=== PATIENT | female | born 1995 | race Two or more races ===

== ENCOUNTER 2019-03-04 11:45 | Emergency (ER) | payer SELFPAY ==
[~2019-03-04] VITALS: Ht 157.5 cm; Wt 53.5 kg
[~2019-03-04 11:45] MED LIST: CEPH-443 PO
[2019-03-04 11:49] VITALS: BP 131/76; PULSE 84; RESP 16; Ht 157.5 cm; Wt 53.5 kg
--- NOTE | 2019-03-04 13:55 | ERD ---
ER Documentation Chief Complaint Chief Complaint rt lower quadrant pain x 3 days , 18 weeks preg , frequency of urination HPI Very pleasant 23-year-old female at approximately 18 weeks gestation presents to the ED complaining of right lower pelvic and suprapubic pain x3 days. She also reports urinary urgency or frequency. No hematuria. No back pain. No fevers or chills. No nausea or vomiting. She states she was last treated for UTI 4 weeks ago. She recently moved here from [place] and has not yet established care with [facility]. ROS All systems reviewed and are negative except as per history of present illness. Medications Home Meds Active Scripts Cephalexin* (Keflex*) 500 Mg Capsule, 500 MG PO BID for 7 Days, CAP Prov:TREMAINE TERAN PA-C 03/04/19 PMhx/Soc Medical and Surgical Hx: pt denies Medical Hx, pt denies Surgical Hx Hx Alcohol Use: No Hx Substance Use: No Hx Tobacco Use: No Smoking Status: Never smoker Physical Exam Vitals Vital Signs Date Temp Pulse Resp B/P (MAP) Pulse Ox O2 O2 Flow FiO2 Time Delivery Rate 03/04/19 98.2 84 16 131/76 100 11:49 (94) Physical Exam Const: No acute distress Head: Atraumatic Eyes: Normal Conjunctiva ENT: Normal External Ears, Nose and Mouth. Neck: Full range of motion. No meningismus. Resp: Clear to auscultation bilaterally Cardio: Regular rate and rhythm, no murmurs Abd: + Gravid abdomen. Soft, + mild suprapubic tenderness palpation, no rebound, no guarding. Non distended. Normal bowel sounds Skin: No petechiae or rashes Back: No midline or flank tenderness Ext: No cyanosis, or edema Neur: Awake and alert Psych: Normal Mood and Affect Results 24 hrs Laboratory Tests Test 03/04/19 12:37 03/04/19 12:44 Urine Color GUIDO Urine Clarity CLOUDY Urine pH 5.0 Urine Specific [place] 1.018 Urine Ketones NEGATIVE mg/dL Urine Nitrite NEGATIVE mg/dL Urine Bilirubin NEGATIVE mg/dL Urine Urobilinogen NEGATIVE mg/dL Urine Leukocyte Esterase 3+ Desiree/ul Urine Microscopic RBC 4 /HPF Urine Microscopic WBC 106 /HPF Urine Squamous Epithelial Cells MANY /HPF Urine Bacteria FEW /HPF Urine Mucus FEW /HPF Urine Hemoglobin NEGATIVE mg/dL Urine Glucose NEGATIVE mg/dL Urine Total Protein NEGATIVE mg/dl POC Beta HCG, Qualitative POSITIVE Procedures/MDM LABS & DIAGNOSTIC IMAGING: Urine: 3+ leuk esterase w/ pyruia Uhcg: positive Ucx: pending PROCEDURES: PROCEDURE: US Obstetrical, limited CLINICAL INDICATION: Right pelvic pain TECHNIQUE: Multiple real-time images were acquired of the patient's maternal abdomen utilizing a curved array transducer. COMPARISON: None available FINDINGS: There is a single live intrauterine fetus positioned breech. The placenta is implanted posteriorly and is grade 0. There is no placenta previa or abruptio evident. There appears to be sufficient amniotic fluid. The heart rate is 150 beats per minute. Measurements: BPD: 4.30 cm, corresponds to a age of 19 weeks 0 days Head circumference: 15.51 cm, corresponds to a age of 18 weeks 3 days Abdominal circumference: 13.30 cm, corresponds to a age of 18 weeks 6 days Femoral length: 2.55 cm, corresponds to a age of 17 weeks 5 days Average age by ultrasound: 18 weeks 4 days plus or minus 1 week 2 days Estimated weight: 235 g plus or minus 35 g. The EFW falls at 88%. Neither ovary is identified. No adnexal mass or free fluid is evident. IMPRESSION: 1. Single live intrauterine fetus, breech presentation. heart rate is 150 bpm. 2. Posterior placenta, grade 0, no previa or abruptio is evident. 3. Estimated age by ultrasound: 18 weeks 4 days plus or minus 1 week 2 days. The estimated weight is 235 g. The EFW falls of 88%. The estimated date of delivery based on today's sonogram is 08/01/2019. 4. Neither ovary is identified but no adnexal mass or free fluid is evident. MEDICAL DECISION MAKIN-year-old G1, P0 female at 18 weeks gestation presents with symptoms concerning for cystitis. UA confirmed diagnosis. Will treat with outpatient antibiotics, urine culture pending. History and physical not concerning for severe dehydration, sepsis or pyelonephritis. Her pelvic ultrasound revealed a single live intrauterine at 18 weeks gestation. Patient was given a list of [facility] to establish care with the next few weeks. There is no evidence of placentia previa/abrupto or any other obstetric emergency at this time. Str ict return precautions. PRESCRIPTIONS: Keflex SPECIALIST FOLLOW UP RECOMMENDED: [facility] Departure Diagnosis: Primary Impression: UTI (urinary tract infection) during Trimester: second trimester Qualified Codes: O23.42 - Unspecified infection of urinary tract in , second trimester Condition: Stable Patient Instructions: Understanding Urinary Tract Infections (UTIs) Referrals: [facility] [place] [address] [facility] [address] [place] [address]ABUSLEME AKIN [address] [place] [address] [address] ALVARENGA, [place] [address] [place] [address] [address] [facility] [address] [facility], [facility] [address] [address], [facility] [place] [address] [place] [address] [facility] [address] [place] [address] [phone] [facility] [id number] - [place] [address] [facility]. [address], [facility] [address] [address], [facility] [address] [facility]. [address], [facility] [address] [address], [facility] [address] [address], [place] [id number] Additional Instructions: Must take the entire course of antibiotics for the next 7 days. Given your referral of [facility] that you can follow-up with in the next few weeks. you can take copies of your most recent ultrasound with you. Return here for any new or worsening symptoms. TREMAINE TERAN PA-C Mar 04, 2019 13:55
== END 2019-03-04 14:03 | disposition home or self-care (01) ==
LOC: FTE 11:45
DX: O23.42 Unspecified infection of urinary tract in pregnancy, second trimester (principal); Z3A.18 18 weeks gestation of pregnancy
CPT/HCPCS: 76805; 81001; 81025; 87086

== ENCOUNTER 2019-03-20 12:26 | Emergency (ER) | payer MEDICAID ==
[~2019-03-20] VITALS: Ht 157.5 cm; Wt 67.0 kg
[~2019-03-20 12:26] MED LIST changes: +METR500T PO
[2019-03-20 12:29] VITALS: Ht 157.5 cm; Wt 67.0 kg
[2019-03-20 15:28] VITALS: BP 132/75; PULSE 67; RESP 18
== END 2019-03-20 15:29 | disposition home or self-care (01) ==
LOC: FTE 12:26
DX: O23.592 Infection of other part of genital tract in pregnancy, second trimester (principal); B96.89 Other specified bacterial agents as the cause of diseases classified elsewhere; Z3A.20 20 weeks gestation of pregnancy
CPT/HCPCS: 76805; 81001; 87086; Z7502